=== PATIENT | female | born 1975 | race Caucasian/White ===

== ENCOUNTER 2022-01-24 13:13 | Outpatient (CLI) | payer BC, SELFPAY ==
--- NOTE | 2022-01-24 13:20 | CRLHL7_ITS ---
For Patients: As a result of the Century Cures Act, medical imaging exams and procedure reports are released immediately into your electronic medical record. You may view this report before your referring provider. If you have questions, please contact your health care provider. BILATERAL SCREENING MAMMOGRAM WITH COMPUTER-AIDED DETECTION AND TOMOSYNTHESIS TECHNIQUE: CC and MLO views were obtained. These mammographic images have been obtained using full-field digital technique. These mammographic images were interpreted with the benefit of computer-aided detection. Breast Tomosynthesis was used in this interpretation. COMPARISON FILM: 12/21/20, 12/02/19, 06/27/18. FINDINGS: The breasts are heterogeneously dense, which may obscure small masses IMPRESSION: There is no radiographic evidence for malignancy. ASSESSMENT: BI-RADS Category 1: Negative RECOMMENDATION: Routine screening mammogram in 1 year. A lay language report of this examination will be provided to the patient. Andrae Valdes M.D. Diagnostic Radiologist [email or web address] DARLYN/Dictated by: Andrae Valdes MD @ 01/25/2022 9:08:00 AM (Electronically Signed)
== END 2022-01-24 13:14 | disposition home or self-care (01) ==
LOC: MAMMO 13:14
PROVIDERS: PCP Family Medicine; Visit Provider Obstetrics & Gynecology
DX: Z12.31 Encounter for screening mammogram for malignant neoplasm of breast (principal); R92.2 Inconclusive mammogram
CPT/HCPCS: 77063; 77067

== ENCOUNTER 2022-01-25 08:05 | Outpatient (CLI) | payer BC, SELFPAY ==
--- NOTE | 2022-01-25 08:15 | MR_ITS ---
[address] [address] Phone:?[phone] Fax:?[phone] Referring Physician Information: Martir Forman M.D. [id number] [facility] [address] Phone:?[phone] Fax:?[phone] Patient:Mariam Gaitan D.O.B:?1975 Sex:?Female Phone:?[phone] [facility] MRN:?[id number] Exam Date:?01/25/2022 ? EXAM: MRI of the LEFT KNEE, without contrast CLINICAL: Reported left knee sprain. Evaluate for meniscal tear. COMPARISONS: None available. TECHNICAL: MR sequences of the left knee: sagittals: PD, PDFS coronals: PD, T2FS axials: PD, PDFS SEDATION: None. CONTRAST: None. FINDINGS: Ligaments: ACL: Intact. PCL: Intact. MCL: Intact. LCL: Intact. Posterolateral corner: Popliteus, biceps femoris, iliotibial band, and the popliteofibular ligament appear intact. Posteromedial corner: Semimembranosus, pes anserine tendons and posterior oblique ligament appear intact. Extensor mechanism: Patellar tendon: Intact, without tendinopathy. Quadriceps tendon: Intact, without tendinopathy. Retinacula: Medial and lateral retinacula are intact. Fat pads: There is increased edema within superolateral Hoffa's fat. Patellofemoral joint: Patella: There is heterogeneity and scattered deep chondral fissuring and delamination involving the patellar cartilage. Grade 2 chondral loss involves the patellar median ridge extending into the junction with the medial patellar facet. Trochlea: There is mild heterogeneity and chondral thinning involving the central trochlea. No chondral defects. Medial compartment: Medial meniscus: Suspect mild ill-defined degenerative fraying/tearing involving the posterior root fibers on sagittal series 6 image 15, with marrow edema within the adjacent tibial attachment site of the posterior root fibers. Medial meniscus otherwise appears intact. No meniscal displacement. Medial cartilage: Grade 2 chondral thinning involves the weightbearing medial femoral condyle. Medial tibial plateau cartilage is preserved. Lateral compartment: Lateral meniscus: No evidence of discrete meniscal tear or meniscal displacement. Lateral cartilage: Mild heterogeneity and surface irregularity involving the lateral tibial plateau cartilage. Lateral femoral condyle cartilage is preserved. Knee joint: Effusion: Moderate left knee effusion. Intra-articular bodies:?No convincing bodies identified. Popliteal cyst: None. Bones: No suspicious bone marrow signal alteration or fracture line. IMPRESSION: 1. Suspect mild ill-defined degenerative fraying/tearing involving the posterior root fibers medial meniscus with edema involving the adjacent tibial attachment site of the posterior root fibers. No additional evidence of meniscal tear. 2. Patellofemoral chondromalacia as above. 3. Increased edema within superolateral Hoffa's fat which can be seen in patients with impingement and patellofemoral tracking. 4. Moderate joint effusion. [facility] Electronically signed on 01/25/2022 2:42:00 PM by Lopez Funk D.O.
== END 2022-01-25 08:06 | disposition home or self-care (01) ==
PROVIDERS: PCP Family Medicine; Visit Provider Orthopaedic Surgery Sports Medicine
DX: M25.562 Pain in left knee (principal); M23.252 Derangement of posterior horn of lateral meniscus due to old tear or injury, left knee; M22.42 Chondromalacia patellae, left knee; M25.462 Effusion, left knee; S83.8X2A Sprain of other specified parts of left knee, initial encounter
CPT/HCPCS: 73721

== ENCOUNTER 2022-04-03 11:02 | Outpatient (CLI) | payer BC, SELFPAY ==
[2022-04-03 13:53] LABS: Chloride* 104 mmol/L (96-114); Potassium* 4.4 mmol/L (3.6-5.1); Sodium* 139 mmol/L (135-149)
[2022-04-03 13:56] LABS: Blood Urea Nitrogen* 10 mg/dL (5-24); Carbon Dioxide* 27 mmol/L (20-32); Cholesterol* 191 mg/dL (90-199); Creatinine* 0.8 mg/dL (0.5-1.5); Estimated Glomerular Filt Rate 93 ml/min
[2022-04-03 13:57] LABS: Calcium* 9.3 mg/dL (8.4-10.6); Glucose* 77 mg/dL (60-115); HDL Cholesterol* 48 mg/dL (>=50); LDL Cholesterol Calculated 113 mg/dL (<100); Triglycerides* 148 mg/dL (40-149)
== END 2022-04-03 11:03 | disposition home or self-care (01) ==
PROVIDERS: PCP Family Medicine; Visit Provider Family Medicine
DX: Z01.818 Encounter for other preprocedural examination (principal); Z13.6 Encounter for screening for cardiovascular disorders
CPT/HCPCS: 80048; 80061

== ENCOUNTER 2022-04-12 06:48 | Day surgery (SDC) | payer BC, SELFPAY ==
[2022-04-12] VITALS (15 sets, daily range): BP systolic 89–107; BP diastolic 44–75; PULSE 59–90; RESP 12–18; TEMP 36.2–36.8; O2SAT 96–99; BMI 29.9
[2022-04-12] MEDS: LACTATED RINGERS 1000 ML 1,000 ML 100 ML IV ×2 (07:10→09:15)
[2022-04-12] MEDS: SODIUM CHLORIDE 0.9 % (FLUSH) 10 ML SYRINGE IVF (07:10)
[2022-04-12 07:36] LABS: HCG Qualitative* Negative (Negative)
[2022-04-12] MEDS: ROPIVACAINE 0.5% 30 ML 150 MG INJECTION (08:39)
--- NOTE | 2022-04-12 08:42 | P.ORPRC_ITS ---
Procedure Note Date of procedure: 04/12/22 Procedure: PREOPERATIVE DIAGNOSIS: 1. Left knee medial meniscus posterior root tear POSTOPERATIVE DIAGNOSIS: 1. 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 Left knee diagnostic arthroscopy 2. Left knee arthroscopic chondroplasty patellofemoral and medial compartments SURGEON: Martir Forman M.D. DRAPERY CUTTER: Jc CAGE. Of note, an executive marketing assistant was critical for this case to aid in patient positioning, knee manipulation, instrument exchange, and closure. ANESTHESIA: Spinal EBL: 2ml TOURNIQUET: 20 minutes at 250 torr COMPLICATIONS: None evident INDICATIONS: The patient is a pleasant 46-year-old female who has experienced left knee pain particularly with any twisting or turning. Physical exam was concerning for medial meniscus tear. MRI was obtained and revealed of partial- thickness posterior root medial meniscus tear concern. Given the failure of nonoperative management, surgery was indicated. FINDINGS: No appreciable medial meniscus tear. Posterior root was probed, and directly visualized and not seem to have any hemorrhagic tissue surrounding approved it was also stable to manipulation and palpation with a probe. Upon talking on the posterior horn, there is mild laxity of the posterior capsular tissue, but even visualized in the posterior medial compartment through the modified Gilcquist maneuver showed no appreciable torn tissue, hemorrhagic tissue, or other signs of injury. Grade 3 chondromalacia medial femoral condyle weight-bearing portion with loose chondral flaps measuring 8 by 14 mm M-L, A-P, respectively. Grade 3 chondromalacia with loose chondral flaps patella median ridge especially superior pole and to some degree lateral facet. Similar findings visualized in the trochlear groove measuring in a trapezoidal pattern approximately 20 mm A-P and 10 mm M-L in its greatest dimension. Lateral meniscus was intact and borrero. ACL and PCL were intact. No loose bodies evident. DESCRIPTION OF PROCEDURE: After a thorough discussion of risks, benefits, and alternatives, the patient was brought to the operating room and placed upon the operating table. Induction of anesthesia was undertaken as previously noted. 2g iv Ancef was administered within 1 hr of incision preoperatively. Appropriate time-out was performed identifying proper patient, site, and procedure. The left lower extremity was prepped and draped in the appropriate sterile fashion using ChloraPrep. The limb was exsanguinated and tourniquet inflated. Anterolateral and anteromedial portals were established with an 11 blade, and a diagnostic arthroscopy was performed. This identified the findings as noted above. Following the diagnostic arthroscopy, a chondroplasty of the loose chondral flaps patellofemoral compartment and medial femoral condyle was performed. Beyond this, the medial meniscus was directly visualized, probed, and evaluated. Even the modified Case maneuver allowing us to visualize in the posterior medial compartment of the knee did not reveal any torn, hemorrhagic, or otherwise pathologic tissue. There is mild laxity to posterior capsular tissue upon probing of the posterior horn, but again no evidence of tearing. At this stage, the shaver was reinserted into the suprapatellar pouch and all remaining meniscal debris was evacuated. Instruments were removed, excess fluid was drained, and closure performed with 4-0 Monocryl with Steri-Strips. Dressings were applied, the tourniquet deflated, and the patient was awoken from anesthesia and transferred to the PACU in stable condition. PLAN: 1. Weightbear as tolerated operative extremity. Crutch / walker ambulation assistance PRN. Straight leg raise to be initiated starting tomorrow by the patient. 2. Ice, acetominophen and/or ibuprofen, and Percocet for pain as needed. 3. Knee range of motion and quad sets/straight leg raise regularly 4. Follow up with PA visit in 7-10 days. for a wound check. Initiate physical therapy at that time
--- NOTE | 2022-04-12 08:54 | W.ANESCHARGE ---
Anesthesia Charges Start Date/Time Anesthesia Start Date: 04/12/22 Anesthesia Start Time: 07:58 Stop Date/Time Anesthesia Stop Date: 04/12/22 Anesthesia Stop Time: 08:53 Summary Emergency: No
--- NOTE | 2022-04-12 09:18 | W.ANESCHARGE ---
Anesthesia Charges Start Date/Time Anesthesia Start Date: 04/12/22 Anesthesia Start Time: 07:58 Stop Date/Time Anesthesia Stop Date: 04/12/22 Anesthesia Stop Time: 08:53 Summary Emergency: No
== END 2022-04-12 11:21 | disposition home or self-care (01) ==
PROVIDERS: Anesthesiology; PCP Family Medicine; Visit Provider Orthopaedic Surgery Sports Medicine
PROC: (CPT 29882; principal; 2022-04-12 08:00)
DX: M22.42 Chondromalacia patellae, left knee (principal); M25.562 Pain in left knee
CPT/HCPCS: 29877; 01400; 84703; 97161; J1100; J2250; J2370; J2400; J2405; J2704; J2795; J3010; J7120

== ENCOUNTER 2022-05-15 20:24 | Outpatient (CLI) | payer BC, SELFPAY | END 2022-05-15 20:25 | disposition home or self-care (01) | LOC: SLEEP 20:25 | PROVIDERS: PCP Family Medicine; Visit Provider Otolaryngology | DX: Z98.890 Other specified postprocedural states (principal) | CPT/HCPCS: 95810 ==

== ENCOUNTER 2022-06-27 16:00 | Outpatient (RCR) | payer BC, SELFPAY | END 2022-07-06 16:17 | disposition home or self-care (01) | PROVIDERS: PCP Family Medicine; Visit Provider Physician Assistant Surgical | DX: M25.562 Pain in left knee (principal); M25.662 Stiffness of left knee, not elsewhere classified; M26.9 Dentofacial anomaly, unspecified; Z51.89 Encounter for other specified aftercare | CPT/HCPCS: 97110; 97112; 97140; 97161 ==

== ENCOUNTER 2023-04-27 13:09 | Outpatient (CLI) | payer BC, SELFPAY ==
--- NOTE | 2023-04-27 13:20 | CRLHL7_ITS ---
For Patients: As a result of the Century Cures Act, medical imaging exams and procedure reports are released immediately into your electronic medical record. You may view this report before your referring provider. If you have questions, please contact your health care provider. BILATERAL SCREENING MAMMOGRAM WITH COMPUTER-AIDED DETECTION AND TOMOSYNTHESIS TECHNIQUE: CC and MLO views were obtained. These mammographic images have been obtained using full-field digital technique. These mammographic images were interpreted with the benefit of computer-aided detection. Breast Tomosynthesis was used in this interpretation. COMPARISON FILM: 01/24/22, 12/21/20, 12/02/19. FINDINGS: The breasts are heterogeneously dense, which may obscure small masses IMPRESSION: There is no radiographic evidence for malignancy. ASSESSMENT: BI-RADS Category 1: Negative RECOMMENDATION: Routine screening mammogram in 1 year. A lay language report of this examination will be provided to the patient. Andrae Valdes M.D. Diagnostic Radiologist [email or web address] DARLYN/Dictated by: Andrae Valdes MD @ 05/01/2023 8:33:00 AM (Electronically Signed)
== END 2023-04-27 13:10 | disposition home or self-care (01) ==
LOC: MAMMO 13:10
PROVIDERS: PCP Family Medicine; Visit Provider Obstetrics & Gynecology
DX: Z12.31 Encounter for screening mammogram for malignant neoplasm of breast (principal); R92.2 Inconclusive mammogram
CPT/HCPCS: 77063; 77067

== ENCOUNTER 2024-07-08 17:30 | Outpatient (CLI) | payer BC, SELFPAY ==
--- NOTE | 2024-07-08 17:40 | CRLHL7_ITS ---
For Patients: As a result of the Century Cures Act, medical imaging exams and procedure reports are released immediately into your electronic medical record. You may view this report before your referring provider. If you have questions, please contact your health care provider. BILATERAL SCREENING MAMMOGRAM WITH COMPUTER-AIDED DETECTION AND TOMOSYNTHESIS TECHNIQUE: CC and MLO views were obtained. These mammographic images have been obtained using full-field digital technique. These mammographic images were interpreted with the benefit of computer-aided detection. Breast Tomosynthesis was used in this interpretation. COMPARISON FILM: 04/27/23, 01/24/22, 12/21/20. FINDINGS: The breasts are heterogeneously dense, which may obscure small masses. IMPRESSION: There is no radiographic evidence for malignancy. ASSESSMENT: BI-RADS Category 1: Negative RECOMMENDATION: Routine screening mammogram in 1 year. A lay language report of this examination will be provided to the patient. Andrae Valdes M.D. Diagnostic Radiologist [email or web address] SP/Dictated by: Andrae Valdes MD @ 07/09/2024 10:19:00 AM (Electronically Signed)
== END 2024-07-08 17:31 | disposition home or self-care (01) ==
LOC: MAMMO 17:31
PROVIDERS: PCP Family Medicine; Visit Provider Obstetrics & Gynecology
DX: Z12.31 Encounter for screening mammogram for malignant neoplasm of breast (principal); R92.333 Mammographic heterogeneous density, bilateral breasts
CPT/HCPCS: 77063; 77067